=== PATIENT | female | born 1985 ===

== ENCOUNTER 2019-06-16 08:35 | Outpatient (CLI) | payer SELFPAY ==
[2019-06-16 08:58] VITALS: BP 83/52
== END 2019-06-16 12:44 | disposition home or self-care (01) ==
LOC: TRG 08:35
PROVIDERS: ATTEND Obstetrics & Gynecology
DX: O47.1 False labor at or after 37 completed weeks of gestation (principal); Z3A.40 40 weeks gestation of pregnancy
CPT/HCPCS: 59025

== ENCOUNTER 2019-06-26 20:31 | Inpatient (IN) | payer SELFPAY ==
[2019-06-26] MEDS ORDERED: AMPICILLIN/NS 2 GM/100 ML 2 GM/100 ML BAG IV ONE (21:46)
[2019-06-26] MEDS ORDERED: LIDOCAINE (2%) 20 MG/1 ML VIAL 20 ML MDV INFILTRATI ONE (21:46)
[2019-06-26] MEDS ORDERED: ePHEDrine SULFATE 50 MG/1 ML INJ IV PRN (21:46)
[2019-06-26] MEDS ORDERED: fentaNYL 100 MCG/2 ML INJ IV PRN (21:46)
[2019-06-26] MEDS ORDERED: TERBUTALINE 1 MG/1 ML INJ SUB-Q PRN (21:46)
[2019-06-26] MEDS ORDERED: OXYTOCIN 20 UNIT/1000ML DRIP 20 UNITS/1,000 ML BAG IV SCH (22:00)
[2019-06-26] MEDS ORDERED: LACTATED RINGERS 1,000 ML IV SCH (22:00)
--- NOTE | 2019-06-26 22:12 | History and Physical Report ---
History of Present Illness Date of examination: 06/26/19 Date of admission: 06/26/2019 Chief complaint: Contractions History of present illness: 33 year old female presents to L&D with contractions. Patient denies leaking of fluid or vaginal bleeding. Patient reports active movement. Patient received care at [facility] and she brings rec ords with her. LMP 09/09/2018. EDC 06/29/2019. significant for the following: pregestational diabetes (diet controlled), anemia, quad screen showed increased risk of Down syndrome; thrombocytopenia, anemia, Tamazight speaker. labs are as follows: B+, antibody screen negative, rubella immune, hepatitis B surface antigen negative, HIV negative, RPR nonreactive, pap smear WNL, gonorrhea negative, chlamydia negative, 1 hour sugar test 197, GBS unknown. 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 denies: no significant social history, smoking, alcohol abuse, prescription drug abuse, IV drug use - Obstetrical History Expected Date of Delivery: 06/29/19 Actual Gestation: 39 Week(s) 5 Day(s) : 2 Para: 1 Hx # Term Pregnancies: 1 Number of Pregnancies: 0 Spontaneous Abortions: 0 Induced : 0 Number of Living Children: 1 Medications and Allergies Allergies Allergy/AdvReac Type Severity Reaction Status Date / Time No Known Allergies Allergy Unverified 06/16/19 08:51 Active Meds: Active Medications Ephedrine Sulfate (Ephedrine Sulfate) 10 mg IV Q2M PRN PRN Reason: Hypotension Fentanyl (Sublimaze) 100 mcg IV Q2H PRN PRN Reason: Labor Pain Oxytocin/Sodium Chloride (Pitocin/Ns 20 Unit/1000ml Drip) 20 units in 1,000 mls @ 125 mls/hr IV DIRECT STEPHANI Lactated Ringer's (Lactated Ringers) 1,000 mls @ 125 mls/hr IV DIRECT STEPHANI Ampicillin Sodium (Ampicillin/Ns 2 Gm/100 Ml) 2 gm in 100 mls @ 100 mls/hr IV ONCE ONE; Protocol Stop: 06/26/19 22:45 Ampicillin Sodium (Ampicillin/Ns 1 Gm/50 Ml) 1 gm in 50 mls @ 100 mls/hr IV Q4HR STEPHANI; Protocol Lidocaine (Xylocaine 2%) 20 ml INFILTRATI ONCE ONE Stop: 06/26/19 21:47 Terbutaline Sulfate (Brethine) 0.25 mg SUB-Q ONCE PRN PRN Reason: Hyperstimulation/Hypertonicity Review of Systems All systems: negative (contractions) - Vital Signs Vital signs: Vital Signs Temp Pulse Resp BP 98.5 F 75 18 109/64 06/26/19 20:51 06/26/19 20:51 06/26/19 20:51 06/26/19 20:51 Temp Pulse Resp BP Pulse Ox 98.5 F 74 18 94/57 06/26/19 20:51 06/26/19 21:32 06/26/19 20:51 06/26/19 21:32 Temp 97.6. - Physical Exam Abdomen: Positive: normal appearance, soft. Negative: distention, tenderness, guarding, rigidity Genitourinary (Female): Positive: normal external genitalia, normal perenium. Negative: perineal/vulvar lesions (no lesions seen on careful exam with bright light upon admission) Vagina: Positive: normal moisture Uterus: Positive: enlarged. Negative: tender Anus/Rectum: Positive: normal perianal skin Extremities: Positive: normal. Negative: tenderness, edema - Obstetrical FHR: category 2 (prolonged FHR deceleration noted ([place] 50s) in triage, lasting 5 minutes with gradual return to baseline. Moderate variability.) Uterine Contraction Monitor Mode: Internal Cervical Dilatation: 3.5 Cervical Effacement Percentage: 80 (Fern test negative) station: -3 Uterine Contraction Pattern: Regular Uterine Contraction Intensity: Moderate Results Result Diagrams: 06/26/19 22:00 06/26/19 22:00 All other labs normal. Assessment and Plan A: at 39 5/7 weeks. Pregestational diabetes (diet controlled). Early labor vs. false labor. GBS unknown. FHR deceleration. P: Admit. Continuous EFM. May have epidural if desired when in active labor. GBS prophylaxis. US to estimate weight. Will consult re: this patient.
[2019-06-26 22:20] LABS: Basophils % (Auto) 0.3 % (0.0-1.8); Eosinophils % (Auto) 0.6 % (0.0-4.3); Hematocrit 35.1 % (30.3-42.9); Hemoglobin 11.8 gm/dl (10.1-14.3); Lymphocytes # (Auto) 1.5 K/mm3 (1.2-5.4); Lymphocytes % (Auto) 31.5 % (13.4-35.0); Mean Corpuscular HGB Conc 34 % (30-34); Mean Corpuscular Volume 97 fl (79-97); Monocytes # (Auto) 0.4 K/mm3 (0.0-0.8); Monocytes % (Auto) 8.8 % (0.0-7.3); Platelet Count 120 K/mm3 (140-440); Red Cell Distribution Width 14.3 % (13.2-15.2)
[2019-06-26 22:33] LABS: Alanine Aminotransferase 12 units/L (7-56); Albumin 3.4 g/dL (3.9-5); BUN/Creatinine Ratio 20; Blood Urea Nitrogen 10 mg/dL (7-17); Calcium 9.5 mg/dL (8.4-10.2); Hemolysis Index 78
--- NOTE | 2019-06-27 00:50 | Ultrasound Report ---
US OB follow up INDICATION / CLINICAL INFORMATION: EFW. COMPARISON: None available. FINDINGS: Viable single intrauterine gestation in the cephalic presentation. heart rate 166 bpm CHRIS is 9. measurements: BPD 9.5-39 weeks Head circumference 34.1 equals to 39 weeks 2 days Abdominal circumference 35.5 equal to 39 weeks 3 days Femur length 7.7 equal to 39 weeks 1 day Estimated body weight 3747 g. Signer Name: John Marroquin MD Signed: 06/27/2019 12:46 AM Workstation Name: [id number]
[2019-06-27] MEDS: AMPICILLIN/NS 1 GM/50 ML 1 GM/50 ML BAG IV SCH ×2 (02:52→06:35)
[2019-06-27 09:26] VITALS: BP 77/45
--- NOTE | 2019-06-27 10:37 | Progress Note ---
Assessment and Plan A: at 39 weeks, 5 days gestation. Not in active labor. Category 1 heart rate tracing. Pregestational diabetes, diet controlled. P: Consulted with Dr. Oconnell re: this patient and all of the above. Dr. Oconnell orders to discharge patient home today. Discussed with patient discharge instructions and warning signs in detail. Advised patient to rest at home. Advised patient to count movements daily and to return if any decrease in movements. Advised patient to return if labor, leaking of water, vaginal bleeding, or any other problems. Induction of labor scheduled for 06/29/2019 at 08:30 AM. Patient voiced understanding of all instructions. Subjective - Subjective Date of service: 06/27/19 Principal diagnosis: at 39 5/7 weeks; pregestational diabetes Interval history: 33 year old was admitted last night at 39 4/7 weeks due to possible early labor and FHR deceleration (isolated prolonged deceleration). Today patient is 39 5/7 weeks gestation. Patient's contractions have spaced significantly overnight after IV hydration; contractions are irregular and mild. Cervical exam this morning is 4/70/-3. There is no vaginal bleeding and no leaking of fluid. Fern test was negative last night. CHRIS 9 cm. Normal sized baby per US. Patient denies abdominal pain or pelvic pain. Patient reports active movement. Category 1 heart rate tracing. Patient had the isolated FHR deceleration while in triage last night; she has had no further decelerations. Dr. Oconnell orders to discharge patient home today. Discussed this plan with patient and her S.O. and patient desires to be discharged until she is in active labor or until date of her scheduled induction of labor (06/29/2019 at 08:30 AM). Patient reports: movement normal, no new complaints, no loss of fluid, no vaginal bleeding Objective - Vital Signs Vital Signs: Vital Signs - 12hr 06/26/19 06/26/19 06/26/19 22:37 22:42 22:47 Temperature Pulse Rate 73 74 74 Respiratory Rate Blood Pressure O2 Sat by Pulse 98 98 98 Oximetry 06/26/19 06/26/19 06/26/19 22:52 22:57 23:02 Temperature Pulse Rate 75 75 78 Respiratory Rate Blood Pressure O2 Sat by Pulse 99 98 98 Oximetry 06/26/19 06/26/19 06/26/19 23:13 23:25 23:31 Temperature Pulse Rate 77 91 H 81 Respiratory Rate Blood Pressure 100/63 O2 Sat by Pulse 97 98 Oximetry 06/27/19 06/27/19 06/27/19 00:25 01:24 02:25 Temperature Pulse Rate 78 81 86 Respiratory Rate Blood Pressure 93/55 94/55 89/52 O2 Sat by Pulse Oximetry 06/27/19 06/27/19 06/27/19 03:25 04:25 05:25 Temperature Pulse Rate 83 72 78 Respiratory Rate Blood Pressure 90/50 91/52 85/52 O2 Sat by Pulse Oximetry 06/27/19 06/27/19 06/27/19 06:25 07:25 08:20 Temperature 98.3 F Pulse Rate 84 71 Respiratory 18 Rate Blood Pressure 85/49 87/52 O2 Sat by Pulse Oximetry 06/27/19 06/27/19 08:25 09:25 Temperature Pulse Rate 65 72 Respiratory Rate Blood Pressure 74/37 77/45 O2 Sat by Pulse Oximetry - Exam Abdomen: Present: normal appearance, soft. Absent: distention, tenderness, guarding, rigidity Uterus: Present: normal, fundal height above umbilicus FHR: category 1 Uterine Contraction Monitor Mode: External Cervical Dilatation: 4 Cervical Effacement Percentage: 70 station: -3 Uterine Contraction Pattern: Irregular Uterine Contraction Intensity: Mild Extremities: normal - Labs Labs: Abnormal Labs 06/26/19 06/26/19 06/26/19 22:00 22:00 22:00 RBC 3.60 L MCH 33 H Plt Count 120 L [place] % (Auto) 8.8 H Sodium 133 L Carbon Dioxide 20 L Creatinine 0.5 L Alkaline Phosphatase 215 H Lactate Dehydrogenase 224 H Albumin 3.4 L Laboratory Results - last 24 hr 06/26/19 06/26/19 06/26/19 22:00 22:00 22:00 WBC 4.8 RBC 3.60 L Hgb 11.8 Hct 35.1 MCV 97 MCH 33 H MCHC 34 RDW 14.3 Plt Count 120 L Lymph % (Auto) 31.5 [place] % (Auto) 8.8 H Eos % (Auto) 0.6 Baso % (Auto) 0.3 Lymph # 1.5 [place] # 0.4 Eos # 0.0 Baso # 0.0 Seg Neutrophils % 58.8 Seg Neutrophils # 2.8 Sodium 133 L Potassium 4.0 Chloride 98.9 Carbon Dioxide 20 L Anion Gap 18 BUN 10 Creatinine 0.5 L Estimated GFR > 60 BUN/Creatinine Ratio 20 Glucose 91 Calcium 9.5 Total Bilirubin 0.30 AST 30 ALT 12 Alkaline Phosphatase 215 H Lactate Dehydrogenase Total Protein 6.9 Albumin 3.4 L Albumin/Globulin Ratio 1.0 Procalcitonin Blood Type B POSITIVE Antibody Screen Positive Antibody Identification Anti-e 06/26/19 06/26/19 22:00 22:00 WBC RBC Hgb Hct MCV MCH MCHC RDW Plt Count Lymph % (Auto) [place] % (Auto) Eos % (Auto) Baso % (Auto) Lymph # [place] # Eos # Baso # Seg Neutrophils % Seg Neutrophils # Sodium Potassium Chloride Carbon Dioxide Anion Gap BUN Creatinine Estimated GFR BUN/Creatinine Ratio Glucose Calcium Total Bilirubin AST ALT Alkaline Phosphatase Lactate Dehydrogenase 224 H Total Protein Albumin Albumin/Globulin Ratio Procalcitonin < 0.05 Blood Type Antibody Screen Antibody Identification
--- NOTE | 2019-06-27 10:51 | Discharge Summary ---
Providers - Providers Date of Admission: 06/26/19 22:01 Date of discharge: 06/27/19 Attending physician: KRISSY WOODRUFF MD Primary care physician: KRISSY WOODRUFF MD Hospitalization Reason for admission: observation Delivery: other (undelivered at 39 weeks, 5 days gestation) Discharge diagnosis: other ( at 39 weeks, 5 days gestation: undelivered) Pertinent studies: Labs, ultrasound. Hospital course: Stable hospital course. Condition at discharge: Good Disposition: DC-01 TO HOME OR SELFCARE - Discharge Diagnoses (1) Term Status: Acute Plan - Provider Discharge Summary Activity: routine Diet: other (ADA diet) Additional instructions: Continue taking your vitamins and iron supplements daily. Call your doctor immediately for: Rest at home. Return to hospital promptly if signs of labor, leaking of water, vaginal bleeding, decreased movements, or any other problems. Count movements daily. Return to hospital on Friday06/29/2019 at 08:30 for scheduled induction of labor. - Follow up plan Follow up: KRISSY WOODRUFF MD [Primary Care Provider] - 06/29/19 Forms: [facility] Discharge Summary
== END 2019-06-27 10:20 | disposition home or self-care (01) | DRG 833 ==
LOC: TRG 20:31 → LD 22:01
PROVIDERS: ADMIT Obstetrics & Gynecology; ATTEND Obstetrics & Gynecology
DX: O36.8330 Maternal care for abnormalities of the fetal heart rate or rhythm, third trimester, not applicable or unspecified (principal); Z3A.39 39 weeks gestation of pregnancy; O24.410 Gestational diabetes mellitus in pregnancy, diet controlled
CPT/HCPCS: 36415; 76816; 80053; 83615; 84145; 85025; 86850; 86870; 86900; 86901; G0378; J0290; J7120

== ENCOUNTER 2019-06-28 21:46 | Inpatient (IN) | payer SELFPAY ==
[2019-06-28] MEDS ORDERED: AMPICILLIN/NS 2 GM/100 ML 2 GM/100 ML BAG IV ONE (22:11)
[2019-06-28] MEDS ORDERED: LIDOCAINE (2%) 20 MG/1 ML VIAL 20 ML MDV INFILTRATI ONE (22:11)
[2019-06-28] MEDS ORDERED: MINERAL OIL 30 ML ORAL LIQD PO PRN (22:11)
[2019-06-28] MEDS ORDERED: ePHEDrine SULFATE 50 MG/1 ML INJ IV PRN (22:11)
[2019-06-28] MEDS ORDERED: TERBUTALINE 1 MG/1 ML INJ SUB-Q PRN (22:11)
[2019-06-28] MEDS ORDERED: fentaNYL 100 MCG/2 ML INJ IV PRN (22:11)
[2019-06-28] MEDS ORDERED: BUTORPHANOL 2 MG/1 ML INJ IV PRN (22:11)
[2019-06-28] MEDS ORDERED: TERBUTALINE 1 MG/1 ML INJ IVP PRN (22:11)
[2019-06-28] MEDS: LACTATED RINGERS 1,000 ML IV SCH (22:28)
[2019-06-28 22:34] LABS: Hematocrit 33.2 % (30.3-42.9); Hemoglobin 11.3 gm/dl (10.1-14.3); Mean Corpuscular HGB Conc 34 % (30-34); Mean Corpuscular Volume 96 fl (79-97); Platelet Count 117 K/mm3 (140-440); Red Blood Count 3.47 M/mm3 (3.65-5.03); Red Cell Distribution Width 14.3 % (13.2-15.2)
--- NOTE | 2019-06-28 22:43 | History and Physical Report ---
History of Present Illness Date of examination: 06/29/19 Date of admission: 06/28/19 22:39 Chief complaint: Contractions History of present illness: 33yo G 2 P 1 0 0 1 @ 40 weeks 0 day here with c/o contractions. She reports +FMs but denies VB or LOF. She is a [facility] patient who initiated care at 6 weeks gestation. Her course was complicated by pre-gestational diabetes(no meds), thrombocytopenia, anemia(on iron therapy) and h/o Paroxysmal nocturnal hemoglobinuria(dx @ age 16). LABS: B pos, Antibody neg, VDRL NR, RI, HBsAg neg, HIV neg, Pap Test wnl, Diabetes Screen 197, GC/CT neg, GBS unknown. Past History Past Medical History: hematologic disorders (Paroxysmal nocturnal hemoglobinuria (PN[facility])), other (gestational diabetes(1st )) Past Surgical History: no surgical history Family/Genetic History: none Social history: single, lives with family, full code. denies: smoking, alcohol abuse, prescription drug abuse, IV drug use - Obstetrical History Expected Date of Delivery: 06/29/19 Actual Gestation: 40 Week(s) 0 Day(s) : 2 Para: 1 Hx # Term Pregnancies: 1 Number of Pregnancies: 0 Spontaneous Abortions: 0 Induced : 0 Number of Living Children: 1 #1 Gender: Male year: [birth year]) Birthweight: 3.629 kg Method of Delivery: Vaginal Gestational age at delivery: 39 Complications: none Medications and Allergies Allergies Allergy/AdvReac Type Severity Reaction Status Date / Time No Known Allergies Allergy Unverified 06/16/19 08:51 Active Meds: Active Medications Butorphanol Tartrate (Stadol) 2 mg IV Q2H PRN PRN Reason: Pain , Severe (7-10) Ephedrine Sulfate (Ephedrine Sulfate) 10 mg IV Q2M PRN PRN Reason: Hypotension Fentanyl (Sublimaze) 100 mcg IV Q2H PRN PRN Reason: Labor Pain Oxytocin/Sodium Chloride (Pitocin/Ns 20 Unit/1000ml Drip) 20 units in 1,000 mls @ 125 mls/hr IV DIRECT STEPHANI Lactated Ringer's (Lactated Ringers) 1,000 mls @ 125 mls/hr IV DIRECT STEPHANI Last Admin: 06/28/19 22:28 Dose: 125 mls/hr Documented by: Ampicillin Sodium (Ampicillin/Ns 2 Gm/100 Ml) 2 gm in 100 mls @ 100 mls/hr IV ONCE ONE; Protocol Stop: 06/28/19 23:10 Last Admin: 06/28/19 22:28 Dose: 100 mls/hr Documented by: Ampicillin Sodium (Ampicillin/Ns 1 Gm/50 Ml) 1 gm in 50 mls @ 100 mls/hr IV Q4HR STEPHANI; Protocol Mineral Oil (Mineral Oil) 30 ml PO QHS PRN PRN Reason: Constipation Terbutaline Sulfate (Brethine) 0.25 mg SUB-Q ONCE PRN PRN Reason: Hyperstimulation/Hypertonicity Terbutaline Sulfate (Brethine) 0.25 mg IVP ONCE PRN PRN Reason: Hyperstimulation/Hypertonicity Review of Systems All systems: negative - Physical Exam Genitourinary (Female): Positive: normal external genitalia, normal perenium Vulva: both: normal Uterus: Positive: normal size - Obstetrical FHR: auscultation normal Uterine Contraction Monitor Mode: External Cervical Dilatation: 7 Cervical Effacement Percentage: 80 station: -1 Uterine Contraction Pattern: Regular Results Result Diagrams: 06/28/19 Unknown Abnormal lab results 06/28/19 Range/Units Unknown RBC 3.47 L (3.65-5.03) M/mm3 MCH 33 H (28-32) pg Plt Count 117 L (140-440) K/mm3 All other labs normal. Assessment and Plan - Patient Problems (1) 40 weeks gestation of Current Visit: Yes Status: Acute (2) Active labor at term Current Visit: Yes Status: Acute Plan to address problem: Admit to L&D with routine labor orders Anticipate vaginal delivery (3) Pregestational diabetes mellitus, modified White class B Current Visit: Yes Status: Acute Plan to address problem: Diet-controlled Accucheck on admission
[2019-06-28] MEDS ORDERED: OXYTOCIN 20 UNIT/1000ML DRIP 20 UNITS/1,000 ML BAG IV SCH (23:00)
[2019-06-28] MEDS ORDERED: DEXMEDETOMIDINE 200 MCG/2 ML VIAL IV ONE (23:29)
[2019-06-29] MEDS ORDERED: NALOXONE 2 MG/2 ML INJ IV PRN (00:05)
[2019-06-29] MEDS ORDERED: ePHEDrine SULFATE 50 MG/1 ML INJ IV PRN (00:05)
--- NOTE | 2019-06-29 00:10 | Anesthesia Consultation ---
Anesthesia Consult and Med Hx Date of service: 06/29/19 - Airway Anesthetic Teeth Evaluation: Good ROM Head & Neck: Adequate Mental/Hyoid Distance: Adequate Mallampati Class: Class II Intubation Access Assessment: Probably Good - Pulmonary Exam CTA: Yes - Cardiac Exam Cardiac Exam: RRR - Pre-Operative Health Status ASA Pre-Surgery Classification: ASA3 Proposed Anesthetic Plan: Epidural - Pulmonary Hx Smoking: No Hx Asthma: No Hx Respiratory Symptoms: No SOB: No COPD: No Home Oxygen Therapy: No Hx Pneumonia: No Hx Sleep Apnea: No - Cardiovascular System Hx Hypertension: No Hx Coronary Artery Disease: No Hx Heart Attack/AMI: No Hx Angina: No Hx Percutaneous Transluminal Coronary Angioplasty (PTCA): No Hx Cardia Arrhythmia: No Hx Pacemaker: No Hx Internal Defibrillator: No Hx Valvular Heart Disease: No Hx Heart Murmur: No Hx Peripheral Vascular Disease: No - Central Nervous System Hx Neuromuscular Disorder: No Hx Seizures: No CVA: No Hx Back Pain: No Hx Psychiatric Problems: No - Gastrointestinal Hx Ulcer: No Hx Gastroesophageal Reflux Disease: Yes - Endocrine Hx Renal Disease: No Hx End Stage Renal Disease: No Hx Cirrhosis: No Hx Liver Disease: No Hx Insulin Dependent Diabetes: No Hx Non-Insulin Dependent Diabetes: Yes (gestational) Hx Thyroid Disease: No Hx Hypothyroidism: No Hx Hyperthyroidism: No - Hematic Hx Anemia: No Hx Sickle Cell Disease: No - Other Systems Hx Alcohol Use: No Hx Substance Use: No Hx Cancer: No Hx Obesity: No
[2019-06-29] MEDS ORDERED: fentaNYL-BUPIV 2 MCG/ML-0.125% 200 MCG/100 ML BAG EPIDURAL SCH (01:00)
[2019-06-29] MEDS ORDERED: OXYTOCIN DRIP 30,000 MILLIUNITS/500 ML BAG IV ONE (01:33)
[2019-06-29] MEDS ORDERED: diphenhydrAMINE 50 MG/ML VIAL ONE (01:45)
[2019-06-29] MEDS ORDERED: diphenhydrAMINE 50 MG/ML VIAL IV ONE (02:11)
[2019-06-29] MEDS ORDERED: AMPICILLIN/NS 1 GM/50 ML 1 GM/50 ML BAG IV SCH ×2 (02:13→04:30)
[2019-06-29] MEDS: LACTATED RINGERS 1,000 ML IV SCH (02:14)
[2019-06-29] MEDS ORDERED: OXYTOCIN DRIP 30 UNITS/500 ML BAG IV SCH (03:00)
--- NOTE | 2019-06-29 05:44 | Procedure Note ---
OB Delivery Note - Delivery Date of Delivery: 06/29/19 (05:18) Surgeon: RIGO CHEW (BRETT) Estimated blood loss: 200cc - Vaginal Delivery presentation: vertex Delivery position: OA Intrapartum events: meconium (terminal meconium), prolonged 2nd stage>2.5hr Delivery induction: none Delivery augmentation: pitocin Delivery monitor: external FHT, external uterine Route of delivery: (05:18) Delivery placenta: spontaneous (05:23) Delivery cord: 3 umbilical vessels Episiotomy: none Delivery laceration: none Anesthesia: epidural Delivery comments: of a vigorous term 7 lbs 5.1 oz female on 06/29/19 @ 05:18. Baby placed on maternal abdomen and dried. After 3 mins, umbilical cord double-clamped by me and cut by FOB. Spontaneous delivery of placenta, Sami-side presenting @ 05:23. Small lochia noted. Fundal massage and IV Pitocin bolus initiated. Fundus F/ML/U-1. Placenta intact; was discarded. No lacerations noted. Perineum intact. Mom and baby in stable condition. - A at 1 minute: 8 (7 lbs 5.1oz (3322 gm); 19.5 in) at 5 minutes: 9 Gender: Female
[2019-06-29] MEDS ORDERED: PROMETHAZINE 25 MG RECT SUPP PR PRN (05:48)
[2019-06-29] MEDS ORDERED: diphenhydrAMINE 25 MG CAP PO PRN (05:48)
[2019-06-29] MEDS ORDERED: HYDROcodone/ACETAMINOPHEN 5-325 MG TAB PO PRN (05:48)
[2019-06-29] MEDS ORDERED: WITCH HAZEL/ GLYCERIN PAD TP PRN (05:48)
[2019-06-29] MEDS ORDERED: LANOLIN/ZINC/DIMETHICONE (LANSINOH) 7 GM TP PRN (05:48)
[2019-06-29] MEDS ORDERED: PROMETHAZINE 25 MG TAB PO PRN (05:48)
[2019-06-29] MEDS ORDERED: MAGNESIUM HYDROXIDE (MOM) ORAL LIQD UDC PO PRN (05:48)
[2019-06-29] MEDS ORDERED: ONDANSETRON 4 MG/2 ML INJ IV PRN (05:48)
[2019-06-29] MEDS ORDERED: ACETAMINOPHEN 325 MG TAB PO PRN (05:48)
[2019-06-29] MEDS: IBUPROFEN 600 MG TAB PO SCH ×4 (06:30→22:09)
[2019-06-29] MEDS: FERROUS SULFATE 325 MG TAB PO SCH (11:53)
[2019-06-29] MEDS: PRENATAL VIT27-FE FUMARATE-FOLIC ACID VIT TAB PO SCH (11:54)
[2019-06-29] MEDS ORDERED: BENZOCAINE/MENTHOL 20/0.5% TOP SPRAY 56 GM TP PRN (14:19)
--- NOTE | 2019-06-29 14:53 | Post Anesthesia Evaluation ---
- Post Anesthesia Evaluation Patient Participated: Yes Airway Patent: Yes Stable Respiratory Function: Yes Nausea/Vomiting: No Temp > 96.8F: Yes Pain Manageable: Yes Adequeate Hydration: Yes Anesthesia Complications: No Block Receding Appropriately: Yes Patient on Ventilator: No
[2019-06-29 18:23] LABS: Hematocrit 31.8 % (30.3-42.9); Hemoglobin 10.7 gm/dl (10.1-14.3)
[2019-06-30] MEDS: IBUPROFEN 600 MG TAB PO SCH ×2 (00:20→05:01)
[2019-06-30] MEDS: PRENATAL VIT27-FE FUMARATE-FOLIC ACID VIT TAB PO SCH (10:36)
[2019-06-30] MEDS: FERROUS SULFATE 325 MG TAB PO SCH (10:36)
--- NOTE | 2019-06-30 10:50 | Progress Note ---
Assessment and Plan A: PP Day #1 Stable P: Follow Routine Orders D/C Home today per patient request Depo Provera prior to discharge RTO in 6 Weeks Subjective - Subjective Date of service: 06/30/19 Patient reports: appetite normal, voiding normally, pain well controlled, flatus, ambulating normally [place]: doing well, bottle feeding Objective - Vital Signs Latest vital signs: Vital Signs Temp Pulse Resp BP BP Pulse Ox 06/30/19 08:11 98.0 F 73 18 99/49 100 06/30/19 01:26 97.4 F L 78 18 95/60 99 06/29/19 16:34 97.6 F 75 16 93/44 96 06/29/19 12:17 97.6 F 79 16 99/48 98 06/29/19 10:54 97.9 F 82 20 92/51 98 Intake and Output 06/29/19 06/30/19 06/30/19 22:59 06:59 14:59 Intake Total 120 240 Output Total 900 Balance -780 240 Intake: Oral 120 240 Output: Urine 900 Void 900 Other: Total, Intake Amount 120 120 Total, Output Amount 900 # Voids Void 1 1 - Exam Breasts: Present: normal Cardiovascular: Present: Regular rate Lungs: Present: Clear to auscultation, Normal air movement Abdomen: Present: normal appearance, soft, normal bowel sounds Uterus: Present: normal, firm, fundal height below umbilicus Extremities: Present: normal
--- NOTE | 2019-06-30 10:51 | Discharge Summary ---
Providers - Providers Date of Admission: 06/28/19 22:39 Date of discharge: 06/30/19 Attending physician: CECILE CASILLAS Primary care physician: CECILE CASILLAS Hospitalization Reason for admission: active labor Delivery: Episiotomy: none Laceration: none Other procedures: none complications: none Discharge diagnosis: IUP at term delivered baby: female Condition at discharge: Good Disposition: DC-01 TO HOME OR SELFCARE Plan - Provider Discharge Summary Activity: routine, no sex for 6 weeks, no heavy lifting 4 weeks, no strenuous exercise Diet: routine Instructions: routine Additional instructions: [] Smoking cessation referral if applicable(refer to patient education folder for contact #) [] Refer to [facility]'s [facility] Booklet Call your doctor immediately for: * Fever > 100.5 * Heavy vaginal bleeding ( >1 pad per hour) * Severe persistent headache * Shortness of breath * Reddened, hot, painful area to leg or breast * Drainage or odor from incision. * Keep incision clean and dry at all times and follow doctor's instructions regarding bathing/showering - Follow up plan Follow up: CECILE CASILLAS MD [Primary Care Provider] - 6 Weeks
[2019-06-30] MEDS ORDERED: medroxyPROGESTERone ACETATE 150 MG/ML SYRINGE IM ONE (11:47)
[2019-06-30 19:18] VITALS: BP 105/60
== END 2019-06-30 17:00 | disposition home or self-care (01) | DRG 807 ==
LOC: TRG 21:46 → LD 22:39 → OB 06-29 08:38
PROVIDERS: ADMIT Obstetrics & Gynecology; ATTEND Obstetrics & Gynecology
PROC: 10E0XZZ Delivery of Products of Conception, External Approach (ICD-10-PCS; principal; 2019-06-29)
PROC: 3E0R3BZ Introduction of Anesthetic Agent into Spinal Canal, Percutaneous Approach (ICD-10-PCS; 2019-06-29)
PROC: 00HU33Z Insertion of Infusion Device into Spinal Canal, Percutaneous Approach (ICD-10-PCS; 2019-06-29)
DX: O77.0 Labor and delivery complicated by meconium in amniotic fluid (principal); Z37.0 Single live birth; O24.429 Gestational diabetes mellitus in childbirth, unspecified control; O99.62 Diseases of the digestive system complicating childbirth; O63.1 Prolonged second stage (of labor); O99.02 Anemia complicating childbirth; D64.9 Anemia, unspecified; K21.9 Gastro-esophageal reflux disease without esophagitis; Z3A.40 40 weeks gestation of pregnancy
CPT/HCPCS: 36415; 82962; 85014; 85018; 85027; 86850; 86870; 86900; 86901; G0378; J0290; J1200; J2590; J3010; J3490; J7120

== ENCOUNTER 2020-12-12 09:46 | Inpatient (IN) | payer OTHER ==
[2020-12-12] MEDS ORDERED: LACTATED RINGERS 1,000 ML ONE (10:40)
[2020-12-12] MEDS ORDERED: OXYTOCIN DRIP 30,000 MILLIUNITS/500 ML BAG IV ONE (10:40)
[2020-12-12] MEDS ORDERED: AMPICILLIN/NS 2 GM/100 ML 2 GM/100 ML BAG IV ONE (10:45)
--- NOTE | 2020-12-12 11:39 | History and Physical Report ---
History of Present Illness Date of examination: 12/12/20 Date of admission: 12/12/20 10:38 Chief complaint: labor History of present illness: 35-year-old female 3 para 2-0-0-2 patient in active labor from a local clinic affiliated with [facility] TEST EXAMINER. She has a prior history of gestational diabetes first and the second she was anti-HCV antibodies O titer she has thrombocytopenia 88,000 hematocrit was 37% blood type B+ antibody screen positive she had a 24-hour urine is showing 184 mg of protein thalassemia was negative gonorrhea chlamydia tests were negative hepatitis B was negative HIV potentially gonorrhea VDRL was nonreactive rubella was immune MSAFP was normal her EDC was 12/21/2020 by ultrasound. The patient is an active labor expectant vaginal delivery. Past History Past Medical History: other (gest dm previous 2 .) Past Surgical History: no surgical history Family/Genetic History: none Social history: - Obstetrical History Expected Date of Delivery: 12/21/20 (thrombocytopenia) Actual Gestation: 38 Week(s) 5 Day(s) : 3 Para: 2 Hx # Term Pregnancies: 2 Number of Pregnancies: 0 Spontaneous Abortions: 0 Induced : 0 Number of Living Children: 2 Medications and Allergies Allergies Allergy/AdvReac Type Severity Reaction Status Date / Time No Known Allergies Allergy Unverified 06/16/19 08:51 Home Medications Medication Instructions Recorded Confirmed Last Taken Type No Known Home Medications [No 06/29/19 06/29/19 Unknown History Reported Home Medications] Active Meds: Active Medications Acetaminophen (Acetaminophen 325 Mg Tab) 650 mg PO Q4H PRN PRN Reason: Pain MILD(1-3)/Fever >100.5/PISANO Hydrocodone Bitart/Acetaminophen (Hydrocodone/Acetaminophen 5-325 Mg Tab) 2 each PO Q6H PRN PRN Reason: Pain, Moderate (4-6) Bisacodyl (Bisacodyl 10 Mg Rect Supp) 10 mg WI BID PRN PRN Reason: Constipation Diphenhydramine HCl (Diphenhydramine 25 Mg Cap) 25 mg PO Q6H PRN PRN Reason: Itching Ibuprofen (Ibuprofen 600 Mg Tab) 600 mg PO Q6H STEPHANI Magnesium Hydroxide (Magnesium Hydroxide (Mom) Oral Liqd Udc) 30 ml PO HS PRN PRN Reason: Constipation Multi-Ingredient Ointment (Lanolin/Zinc/Dimethicone (Lansinoh) 7 Gm) 1 applic TP PRN PRN PRN Reason: Sore Nipples Ondansetron HCl (Ondansetron 4 Mg/2 Ml Inj) 4 mg IV Q8H PRN PRN Reason: Nausea And Vomiting Promethazine HCl (Promethazine 25 Mg Rect Supp) 25 mg WI Q6H PRN PRN Reason: Nausea And Vomiting Promethazine HCl (Promethazine 25 Mg Tab) 25 mg PO Q6H PRN PRN Reason: Nausea And Vomiting Sodium Chloride (Sodium Chloride 0.9% 10 Ml Flush Syringe) 10 ml IV PRN NR Witch Teresa/Glycerin (Witch Teresa/ Glycerin Pad) 1 each TP PRN PRN PRN Reason: Hemorrhoid/cleansing/soothing Review of Systems Hematologic/Lymphatic: other (thrombocytopenia) - Vital Signs Vital signs: Vital Signs Pulse BP 76 110/65 12/12/20 10:43 12/12/20 10:43 Temp Pulse Resp BP Pulse Ox 97.9 F 78 20 94/55 12/12/20 11:29 12/12/20 11:26 12/12/20 11:29 12/12/20 11:26 - Physical Exam Breasts: Positive: normal Cardiovascular: Regular rate, Normal S1, Normal S2 Lungs: Positive: Clear to auscultation, Normal air movement Abdomen: Positive: normal appearance, soft, normal bowel sounds. Negative: distention, tenderness Genitourinary (Female): Positive: normal external genitalia, normal perenium Vulva: both: normal Vagina: Positive: normal moisture. Negative: discharge Cervix: Negative: lesion, discharge Uterus: Positive: normal size, normal contour Adnexa: both: normal Anus/Rectum: Positive: normal perianal skin, heme negative. Negative: rectal mass, hemorrhoids Extremities: Deep Tendon Reflex Grade: Normal +2 - Obstetrical FHR: category 1 Uterine Contraction Monitor Mode: Palpation Cervical Dilatation: 10 Cervical Effacement Percentage: 100 station: +3 Uterine Contraction Frequency (min): q3min Uterine Contraction Pattern: Regular Uterine Tone Measurement Phase: Resting Uterine Contraction Intensity: Strong/Firm Results All other labs normal. Assessment and Plan - Patient Problems (1) Thrombocytopenia affecting Current Visit: Yes Status: Acute (2) 40 weeks gestation of Current Visit: No Status: Acute (3) Active labor at term Current Visit: No Status: Acute (4) Pregestational diabetes mellitus, modified White class B Current Visit: No Status: Acute
--- NOTE | 2020-12-12 11:51 | Procedure Note ---
Date of procedure: 12/12/20 Pre-op diagnosis: 39 wks iup,labor, gest dm, thrombocytopenia Post-op diagnosis: same Procedure: This is Dr. Estrada dictating operative note on the patient. Preoperative diagnosis 39-week intrauterine gestational diabetes mellitus active labor thrombocytopenia. Postop diagnosis same. Procedure normal spontaneous vaginal delivery delivery of the placenta spontaneously liveborn male weight 9 pounds 1 ounce with Apgars 8,9. No tears. Blood loss 200 cc Complications none Patient tolerated procedure well thank you. Anesthesia: none Surgeon: PONCHO ESTRADA Estimated blood loss: other (200ccs) Pathology: none Specimen disposition: discarded Condition: stable Disposition: observation
[2020-12-12] MEDS ORDERED: diphenhydrAMINE 25 MG CAP PO PRN (12:00)
[2020-12-12] MEDS ORDERED: LANOLIN/ZINC/DIMETHICONE (LANSINOH) 7 GM TP PRN (12:00)
[2020-12-12] MEDS ORDERED: IBUPROFEN 600 MG TAB PO SCH (12:00)
[2020-12-12] MEDS ORDERED: ACETAMINOPHEN 325 MG TAB PO PRN (12:00)
[2020-12-12] MEDS ORDERED: ONDANSETRON 4 MG/2 ML INJ IV PRN (12:00)
[2020-12-12] MEDS ORDERED: WITCH HAZEL/ GLYCERIN PAD TP PRN (12:00)
[2020-12-12] MEDS ORDERED: PROMETHAZINE 25 MG RECT SUPP PR PRN (12:00)
[2020-12-12] MEDS ORDERED: PROMETHAZINE 25 MG TAB PO PRN (12:00)
[2020-12-12 12:07] LABS: Basophils % (Auto) 0.3 % (0.0-1.8); Eosinophils % (Auto) 0.4 % (0.0-4.3); Hemoglobin 13.5 gm/dl (10.1-14.3); Lymphocytes # (Auto) 0.9 K/mm3 (1.2-5.4); Mean Corpuscular HGB Conc 34 % (30-34); Mean Corpuscular Volume 96 fl (79-97); Monocytes # (Auto) 0.3 K/mm3 (0.0-0.8); Monocytes % (Auto) 5.6 % (0.0-7.3); Platelet Count 104 K/mm3 (140-440); Red Blood Count 4.18 M/mm3 (3.65-5.03); Red Cell Distribution Width 14.7 % (13.2-15.2)
[2020-12-12] MEDS ORDERED: MAGNESIUM HYDROXIDE (MOM) ORAL LIQD UDC PO PRN (22:00)
[2020-12-12] MEDS: HYDROcodone/ACETAMINOPHEN 5-325 MG TAB PO PRN (22:53)
[2020-12-13 02:50] LABS: Hematocrit 33.4 % (30.3-42.9); Hemoglobin 11.5 gm/dl (10.1-14.3)
--- NOTE | 2020-12-13 07:38 | Consultation ---
History of Present Illness - Reason for Consult Consult date: 12/12/20 Medical management of thrombocytopenia Requesting physician: PONCHO ESTRADA - History of Present Illness 35-year-old female 3 para 2-0-0-2 patient in active labor from a local clinic affiliated with [facility]. She has a prior history of gestational diabetes first and the second she was anti-HCV antibodies O titer she has thrombocytopenia 88,000 hematocrit was 37% blood type B+ antibody screen positive she had a 24-hour urine is showing 184 mg of protein thalassemia was negative gonorrhea chlamydia tests were negative hepatitis B was negative HIV potentially gonorrhea VDRL was nonreactive rubella was immune MSAFP was normal her EDC was 12/21/2020 by ultrasound. The patient is an active labor expectant vaginal delivery. Consulted for decreased platelet count. No evidence of any active bleeding. Past History Past Medical History: No medical history Past Surgical History: No surgical history Social history: , full code Family history: no significant family history Medications and Allergies Allergies Allergy/AdvReac Type Severity Reaction Status Date / Time No Known Allergies Allergy Verified 12/12/20 13:01 Home Medications Medication Instructions Recorded Confirmed Last Taken Type No Known Home Medications [No 06/29/19 12/12/20 Unknown History Reported Home Medications] Active Meds: Active Medications Acetaminophen (Acetaminophen 325 Mg Tab) 650 mg PO Q4H PRN PRN Reason: Pain MILD(1-3)/Fever >100.5/PISANO Hydrocodone Bitart/Acetaminophen (Hydrocodone/Acetaminophen 5-325 Mg Tab) 2 each PO Q6H PRN PRN Reason: Pain, Moderate (4-6) Last Admin: 12/12/20 22:53 Dose: 2 each Documented by: Bisacodyl (Bisacodyl 10 Mg Rect Supp) 10 mg [place] BID PRN PRN Reason: Constipation Diphenhydramine HCl (Diphenhydramine 25 Mg Cap) 25 mg PO Q6H PRN PRN Reason: Itching Ibuprofen (Ibuprofen 600 Mg Tab) 600 mg PO Q6H STEPHANI Last Admin: 12/12/20 18:05 Dose: 600 mg Documented by: Magnesium Hydroxide (Magnesium Hydroxide (Mom) Oral Liqd Udc) 30 ml PO HS PRN PRN Reason: Constipation Multi-Ingredient Ointment (Lanolin/Zinc/Dimethicone (Lansinoh) 7 Gm) 1 applic TP PRN PRN PRN Reason: Sore Nipples Ondansetron HCl (Ondansetron 4 Mg/2 Ml Inj) 4 mg IV Q8H PRN PRN Reason: Nausea And Vomiting Promethazine HCl (Promethazine 25 Mg Rect Supp) 25 mg [place] Q6H PRN PRN Reason: Nausea And Vomiting Promethazine HCl (Promethazine 25 Mg Tab) 25 mg PO Q6H PRN PRN Reason: Nausea And Vomiting Sodium Chloride (Sodium Chloride 0.9% 10 Ml Flush Syringe) 10 ml IV PRN PRN PRN Reason: flush Witch Teresa/Glycerin (Witch Teresa/ Glycerin Pad) 1 each TP PRN PRN PRN Reason: Hemorrhoid/cleansing/soothing Review of Systems All systems: negative Exam - Constitutional Vitals: Temp Pulse Resp BP Pulse Ox 98.6 F 72 16 119/76 100 12/13/20 00:30 12/13/20 00:30 12/13/20 00:30 12/13/20 00:30 12/12/20 20:53 General appearance: Present: no acute distress, well-nourished - EENT Eyes: Present: PERRL ENT: hearing intact, clear oral mucosa - Neck Neck: Present: supple, normal ROM - Respiratory Respiratory effort: normal Respiratory: bilateral: CTA - Cardiovascular Heart rate: 78 Rhythm: regular Heart Sounds: Present: S1 & S2. Absent: rub, click - Extremities Extremities: pulses symmetrical, No edema Peripheral Pulses: within normal limits - Abdominal General gastrointestinal: Present: soft, non-tender, non-distended, normal bowel sounds Female genitourinary: Present: normal - Integumentary Integumentary: Present: clear, warm, dry - Musculoskeletal Musculoskeletal: gait normal, strength equal bilaterally - Psychiatric Psychiatric: appropriate mood/affect, intact judgment & insight - Neurologic Neurologic: CNII-XII intact, moves all extremities Results - Labs CBC & Chem 7: 12/12/20 23:29 Labs: Abnormal lab results 12/12/20 Range/Units 11:40 Plt Count 104 L (140-440) K/mm3 Lymph # (Auto) 0.9 L (1.2-5.4) K/mm3 Seg Neutrophils % 77.7 H (40.0-70.0) % Short CBC 12/12/20 12/12/20 Range/Units 11:40 23:29 WBC 5.7 (4.5-11.0) K/mm3 Hgb 13.5 11.5 (10.1-14.3) gm/dl Hct 40.0 33.4 D (30.3-42.9) % Plt Count 104 L (140-440) K/mm3 Assessment and Plan - Patient Problems (1) Thrombocytopenia affecting Current Visit: Yes Status: Acute Plan to address problem: No intervention at this point We will recheck the platelet count Steroids if necessary Do not suspect ITP or TTP
--- NOTE | 2020-12-13 10:12 | Progress Note ---
Assessment and Plan A: S/P Thrombocytopenia P: Awaiting results of plt ct July d/c home per pt's request if ok with hospitalist Subjective - Subjective Date of service: 12/13/20 Principal diagnosis: s/p Patient reports: appetite normal, voiding normally, pain well controlled, ambulating normally : doing well, nursing well Objective - Vital Signs Latest vital signs: Vital Signs Temp Pulse Resp BP BP Pulse Ox Pulse Ox 12/13/20 08:36 97.9 F 68 18 95/57 99 12/13/20 00:30 98.6 F 72 16 119/76 12/12/20 20:53 98.0 F 61 18 94/58 100 12/12/20 20:20 98 12/12/20 17:21 98.3 F 73 18 94/59 99 12/12/20 13:20 97.8 F 69 20 101/60 98 98 12/12/20 12:58 67 100/55 12/12/20 12:43 71 109/55 12/12/20 12:28 73 90/53 12/12/20 12:13 75 107/63 12/12/20 11:58 68 106/61 12/12/20 11:43 73 114/53 12/12/20 11:29 97.9 F 20 12/12/20 11:26 78 94/55 12/12/20 11:24 76 99/58 12/12/20 11:22 81 102/51 12/12/20 11:20 85 105/61 12/12/20 10:43 76 110/65 Intake and Output 12/12/20 12/13/20 12/13/20 22:59 06:59 14:59 Intake Total 200 240 Balance 200 240 Intake: Oral 200 240 Other: Total, Intake Amount 200 240 # Voids Void 1 1 1 - Exam Breasts: Present: normal Abdomen: Present: normal appearance, soft, normal bowel sounds Vulva: both: normal Uterus: Present: normal, firm, fundal height below umbilicus Extremities: Present: normal - Labs Labs: Abnormal lab results 12/12/20 Range/Units 11:40 Plt Count 104 L (140-440) K/mm3 Lymph # (Auto) 0.9 L (1.2-5.4) K/mm3 Seg Neutrophils % 77.7 H (40.0-70.0) %
[2020-12-13 10:24] LABS: Basophils % (Auto) 0.4 % (0.0-1.8); Eosinophils # (Auto) 0.1 K/mm3 (0.0-0.4); Eosinophils % (Auto) 1.7 % (0.0-4.3); Hematocrit 32.9 % (30.3-42.9); Hemoglobin 11.4 gm/dl (10.1-14.3); Lymphocytes # (Auto) 1.4 K/mm3 (1.2-5.4); Lymphocytes % (Auto) 27.1 % (13.4-35.0); Mean Corpuscular HGB Conc 35 % (30-34); Mean Corpuscular Volume 96 fl (79-97); Monocytes # (Auto) 0.3 K/mm3 (0.0-0.8); Monocytes % (Auto) 5.4 % (0.0-7.3); Platelet Count 105 K/mm3 (140-440); Red Blood Count 3.44 M/mm3 (3.65-5.03); Red Cell Distribution Width 14.7 % (13.2-15.2)
[2020-12-13 10:49] LABS: Alanine Aminotransferase 19 units/L (7-56); Albumin 2.9 g/dL (3.9-5); Blood Urea Nitrogen 5 mg/dL (7-17); Calcium 8.6 mg/dL (8.4-10.2); Hemolysis Index 9
[2020-12-13 11:07] LABS: BUN/Creatinine Ratio 13
--- NOTE | 2020-12-13 16:29 | Progress Note ---
Assessment and Plan Assessment and plan: --Thrombocytopenia ; Current Visit: Yes Status: Acute Hospitalist service was consulted to evaluate and manage patient's thrombocytopenia Patient's platelets yesterday were 104K, today 105K [normal range 140-440K] No treatment or intervention needed at this point Patient already sees a data center architect at the [facility] Dr. Huseyin Torres, patient has an an appointment on January 09/[address] Torres/data center architect for evaluation and management of thrombocytopenia Patient is medically cleared for discharge Plan of care reviewed with the patient, her and the patient's nurse Thank you for this consultation, Call us with questions and concerns I will sign off History Interval history: I have seen and examined the patient in her room at the bedside Patient has no new complaints Vital signs noted Hospitalist Physical - Constitutional Vitals: Temp Pulse Resp BP Pulse Ox 97.9 F 68 18 95/57 100 12/13/20 08:36 12/13/20 08:36 12/13/20 08:36 12/13/20 08:36 12/13/20 09:56 General appearance: Present: no acute distress, well-nourished - EENT Eyes: Present: PERRL, EOM intact - Neck Neck: Present: supple, normal ROM - Respiratory Respiratory effort: normal Respiratory: bilateral: diminished, negative: rales, rhonchi, wheezing - Cardiovascular Rhythm: regular Heart Sounds: Present: S1 & S2 - Extremities Extremities: no ischemia, No edema - Abdominal General gastrointestinal: soft, non-tender, non-distended, normal bowel sounds - Integumentary Integumentary: Present: clear, warm - Psychiatric Psychiatric: appropriate mood/affect, cooperative - Neurologic Neurologic: moves all extremities Results - Labs CBC & Chem 7: 12/13/20 10:06 12/13/20 10:06 Labs: Laboratory Last Values WBC 5.1 K/mm3 (4.5-11.0) 12/13/20 10:06 RBC 3.44 M/mm3 (3.65-5.03) L 12/13/20 10:06 Hgb 11.4 gm/dl (10.1-14.3) 12/13/20 10:06 Hct 32.9 % (30.3-42.9) 12/13/20 10:06 MCV 96 fl (79-97) 12/13/20 10:06 MCH 33 pg (28-32) H 12/13/20 10:06 MCHC 35 % (30-34) H 12/13/20 10:06 RDW 14.7 % (13.2-15.2) 12/13/20 10:06 Plt Count 105 K/mm3 (140-440) L 12/13/20 10:06 Lymph % (Auto) 27.1 % (13.4-35.0) 12/13/20 10:06 [place] % (Auto) 5.4 % (0.0-7.3) 12/13/20 10:06 Eos % (Auto) 1.7 % (0.0-4.3) 12/13/20 10:06 Baso % (Auto) 0.4 % (0.0-1.8) 12/13/20 10:06 Lymph # (Auto) 1.4 K/mm3 (1.2-5.4) 12/13/20 10:06 [place] # (Auto) 0.3 K/mm3 (0.0-0.8) 12/13/20 10:06 Eos # (Auto) 0.1 K/mm3 (0.0-0.4) 12/13/20 10:06 Baso # (Auto) 0.0 K/mm3 (0.0-0.1) 12/13/20 10:06 Seg Neutrophils % 65.4 % (40.0-70.0) 12/13/20 10:06 Seg Neutrophils # 3.3 K/mm3 (1.8-7.7) 12/13/20 10:06 Sodium 136 mmol/L (137-145) L 12/13/20 10:06 Potassium 4.2 mmol/L (3.6-5.0) 12/13/20 10:06 Chloride 104.2 mmol/L (98-107) 12/13/20 10:06 Carbon Dioxide 20 mmol/L (22-30) L 12/13/20 10:06 Anion Gap 16 mmol/L 12/13/20 10:06 BUN 5 mg/dL (7-17) L 12/13/20 10:06 Creatinine 0.4 mg/dL (0.6-1.2) L 12/13/20 10:06 Estimated GFR > 60 ml/min 12/13/20 10:06 BUN/Creatinine Ratio 13 % 12/13/20 10:06 Glucose 147 mg/dL (65-100) H 12/13/20 10:06 Calcium 8.6 mg/dL (8.4-10.2) 12/13/20 10:06 Total Bilirubin 0.20 mg/dL (0.1-1.2) 12/13/20 10:06 AST 23 units/L (5-40) 12/13/20 10:06 ALT 19 units/L (7-56) 12/13/20 10:06 Alkaline Phosphatase 195 units/L (35-129) H 12/13/20 10:06 Total Protein 5.8 g/dL (6.3-8.2) L 12/13/20 10:06 Albumin 2.9 g/dL (3.9-5) L 12/13/20 10:06 Albumin/Globulin Ratio 1.0 % 12/13/20 10:06 Syphilis IgG Antibody Nonreactive (NonReactive) 12/12/20 11:40 Coronavirus (PCR) Negative (Negative) 12/13/20 Unknown Blood Type B POSITIVE 12/12/20 11:40 Antibody Screen Negative 12/12/20 11:40 Active Medications - Current Medications Current Medications: Generic Name Dose Route Start Last Admin Trade Name Freq PRN Reason Stop Dose Admin Acetaminophen 650 mg 12/12/20 12:00 Acetaminophen 325 Mg Tab PO Q4H PRN Pain MILD(1-3)/Fever >100.5/PISANO Hydrocodone Bitart/Acetaminophen 2 each 12/12/20 12:00 12/12/20 22:53 Hydrocodone/Acetaminophen 5-325 Mg Tab PO 2 each Q6H PRN Administration Pain, Moderate (4-6) Bisacodyl 10 mg 12/12/20 13:00 Bisacodyl 10 Mg Rect Supp SC BID PRN Constipation Diphenhydramine HCl 25 mg 12/12/20 12:00 Diphenhydramine 25 Mg Cap PO Q6H PRN Itching Ibuprofen 600 mg 12/12/20 12:00 12/12/20 18:05 Ibuprofen 600 Mg Tab PO 600 mg Q6H STEPHANI Administration Magnesium Hydroxide 30 ml 12/12/20 22:00 Magnesium Hydroxide (Mom) Oral Liqd Udc PO HS PRN Constipation Multi-Ingredient Ointment 1 applic 12/12/20 12:00 Lanolin/Zinc/Dimethicone (Lansinoh) 7 Gm TP PRN PRN Sore Nipples Ondansetron HCl 4 mg 12/12/20 12:00 Ondansetron 4 Mg/2 Ml Inj IV Q8H PRN Nausea And Vomiting Promethazine HCl 25 mg 12/12/20 12:00 Promethazine 25 Mg Rect Supp SC Q6H PRN Nausea And Vomiting Promethazine HCl 25 mg 12/12/20 12:00 Promethazine 25 Mg Tab PO Q6H PRN Nausea And Vomiting Sodium Chloride 10 ml 12/12/20 12:00 Sodium Chloride 0.9% 10 Ml Flush Syringe IV PRN PRN flush Witch Teresa/Glycerin 1 each 12/12/20 12:00 Witch Teresa/ Glycerin Pad TP PRN PRN Hemorrhoid/cleansing/soothing
--- NOTE | 2020-12-13 16:51 | Discharge Summary ---
Providers - Providers Date of Admission: 12/13/20 09:46 Date of discharge: 12/13/20 Attending physician: PONCHO ESTRADA MD 12/12/20 13:27 Consult to Physician [CONS] Routine Comment: Consulting Provider: ONEL GUALLPA Physician Instructions: please evaluate Reason For Exam: thrombocytopenia Primary care physician: CECILE CASILLAS Hospitalization Reason for admission: active labor, IUP at term Delivery: , other (PRECIPITOUS) Episiotomy: none Laceration: none Other procedures: none complications: other (Hx thrombocytopenia seen by hospitalist enedina alvarez) Discharge diagnosis: IUP at term delivered [place] baby: male Hospital course: Pt was admitted to [facility] in active labor. She had a precipitous . She was seen by the hospitalist r/t low platelets. See H&P, delivery summary, and pp notes. Condition at discharge: Stable Disposition: 01 HOME / SELF CARE / HOMELESS Plan - Discharge Medications Prescriptions: Ibuprofen [Motrin 600 MG tab] 600 mg PO Q6H PRN #30 tablet PRN Reason: Menstrual Cramps - Provider Discharge Summary Activity: routine, no sex for 6 weeks, no heavy lifting 4 weeks, no strenuous exercise Diet: routine Instructions: other (F/U WITH NUTRITION PARTNER) Additional instructions: [] Smoking cessation referral if applicable(refer to patient education folder for contact #) [] Refer to [facility] Booklet Call your doctor immediately for: * Fever > 100.5 * Heavy vaginal bleeding ( >1 pad per hour) * Severe persistent headache * Shortness of breath * Reddened, hot, painful area to leg or breast * Drainage or odor from incision. * Keep incision clean and dry at all times and follow doctor's instructions regarding bathing/showering - Follow up plan Follow up: CECILE CASILLAS MD [Primary Care Provider] - 6 Weeks
[2020-12-13] MEDS: HYDROcodone/ACETAMINOPHEN 5-325 MG TAB PO PRN (17:23)
[2020-12-14] MEDS: HYDROcodone/ACETAMINOPHEN 5-325 MG TAB PO PRN (10:16)
[2020-12-14 15:44] VITALS: BP 104/70
== END 2020-12-14 16:00 | disposition home or self-care (01) | DRG 806 ==
LOC: LD 09:46 → INTOOBSV 10:38 → OB 13:21 → OBSVTOIN 12-13 09:46
PROC: 10E0XZZ Delivery of Products of Conception, External Approach (ICD-10-PCS; principal; 2020-12-12)
DX: O24.429 Gestational diabetes mellitus in childbirth, unspecified control (principal); O99.12 Other diseases of the blood and blood-forming organs and certain disorders involving the immune mechanism complicating childbirth; Z37.0 Single live birth; O62.3 Precipitate labor; D69.6 Thrombocytopenia, unspecified; Z3A.39 39 weeks gestation of pregnancy; Z20.822 Contact with and (suspected) exposure to COVID-19
CPT/HCPCS: 36415; 59025; 80053; 85014; 85018; 85025; 86592; 86850; 86900; 86901; G0378; G0379; U0003